=== PATIENT | female | born 1945 | race Caucasian/White ===

== ENCOUNTER → 2016-05-11 | Outpatient (CLI) | payer MEDICARE, OTHER | LOC: GMAH 10:50 | PROVIDERS: ATTEND Family Medicine | DX: E78.2 Mixed hyperlipidemia (principal) ==

== ENCOUNTER → 2016-08-10 | Outpatient (CLI) | payer MEDICARE, OTHER | END | disposition home or self-care (01) | LOC: GMAH 14:10 | PROVIDERS: ATTEND Family Medicine | DX: E78.2 Mixed hyperlipidemia (principal) ==

== ENCOUNTER → 2017-05-17 | Outpatient (CLI) | payer MEDICARE, OTHER | LOC: GMAH 14:31 | PROVIDERS: ATTEND Family Medicine | DX: E78.2 Mixed hyperlipidemia (principal) ==

== ENCOUNTER → 2017-08-02 | Outpatient (CLI) | payer MEDICARE, OTHER ==
--- NOTE | 2017-08-04 14:50 | MAM ---
EXAM DESCRIPTION: 3D Screening BILATERAL : Digital Mammography. CLINICAL HISTORY: 72 years Female SCREENING . No complaints. No family history breast cancer. Postmenopausal. Has taken HRT 5 or more years ago. COMPARISON: 2-D digital screening bilateral study 11/04/2015. Report from prior examination also reviewed. TECHNIQUE: Bilateral CC and MLO projection full-field images, 3-D tomosynthesis digital mammographic technique. Also bilateral synthesized CC/ MLO full-field images. CAD not utilized. FINDINGS: The breast parenchymal density pattern is: Scattered areas of fibroglandular density. No skin thickening or nipple retraction . Bilateral axillary lymph nodes. Bilateral solitary microcalcifications. No focal, stellate mass or density, focal asymmetry , and no suspicious microcalcifications bilaterally. Stable mammograms compared to prior study, taking into account differences in mammographic technique IMPRESSION: BI-RADS CATEGORY: 2 - BENIGN FINDINGS. FOLLOW UP: Routine digital bilateral screening, one year interval from July 2017. Written communication explaining the IMPRESSION and follow-up, will be mailed to the patient and referring health care provider. According to the [employer], yearly mammograms are recommended starting at age 40 and continuing as long as a woman is in good health. Any breast change noted on a breast self-exam should be reported promptly to the patient's healthcare provider. Breast MRI is recommended for women with an approximately 20-25% or greater lifetime risk of breast cancer, including women with a strong family history of breast or ovarian cancer and women who have been treated for Hodgkin's disease. A negative mammographic report should not delay tissue diagnosis in patients with significant clinical history or physical findings. Extremely dense breast tissue limits the sensitivity of digital mammography. Electronically signed by: Neal Lockwood MD 08/04/2017 2:49 PM CDT
== END ==
LOC: MAMMO 10:30
PROVIDERS: ATTEND Family Medicine
DX: Z12.31 Encounter for screening mammogram for malignant neoplasm of breast (principal)

== ENCOUNTER 2017-10-04 09:38 | Emergency (ER) | payer MEDICARE, OTHER ==
--- NOTE | 2017-10-04 09:49 | ED.PDOC ---
History of Present Illness - General Chief Complaint: Trauma Stated Complaint: Fall - several abrasions Time Seen by Provider: 10/04/17 09:48 Source: patient, RN notes reviewed, Vital Signs reviewed, family Exam Limitations: no limitations - History of Present Illness Timing/Duration: 1 hour Severity: mild Improving Factors: immobilization Worsening Factors: movement Associated Symptoms: denies symptoms - painful right wrist, no chest pain, abd pain, no headache Allergies/Adverse Reactions: Allergies NO KNOWN ALLERGY Allergy (Verified 10/04/17 09:47) Home Medications: Ambulatory Orders Amoxicillin 875 mg PO BID #20 tab 10/04/17 Ketorolac Tromethamine [Toradol Tabs] 10 mg PO Q6H PRN #20 tab 10/04/17 Review of Systems - Review of Systems Constitutional: States: no symptoms reported EENTM: Denies: eye pain, blurred vision, double vision, ear pain, ear discharge , nose pain, nose congestion, throat pain, throat swelling, mouth pain, mouth swelling Respiratory: Denies: short of breath Cardiology: Denies: chest pain, edema, palpitations, syncope Gastrointestinal/Abdominal: Denies: abdominal pain, nausea Genitourinary: States: no symptoms reported Musculoskeletal: States: other - pain to right wrist, left knee, lip/ tooth Skin: States: other - laceration, bruise Neurological: Denies: headache, numbness, paresthesia, tremors, weakness Endocrine: States: no symptoms reported Hematologic/Lymphatic: States: no symptoms reported Family Medical History - Family History Mother Living Status: Hx Family Hypertension: Yes Hx Cardiac Disease: Yes Hx Family;Other: Parkinson's Physical Exam - Physical Exam General Appearance: Alert, Well Developed, Well Groomed, Well Hydrated, Well Nourished Eye Exam: bilateral normal Ears, Nose, Throat: hearing grossly normal, normal ENT inspection, normal pharynx, other - 1 cm non gaping laceration to the linner upper lip, small abrasion to the outer lip superior, no pain to the face with biting down, no pain to bones of face, normal eye motion Neck: non-tender, full range of motion, supple Respiratory: chest non-tender, lungs clear, normal breath sounds, no respiratory distress, no accessory muscle use Cardiovascular/Chest: normal peripheral pulses, regular rate, rhythm, no edema, no gallop, no JVD, no murmur Peripheral Pulses: radial,right: 2+, radial,left: 2+ Gastrointestinal/Abdominal: normal bowel sounds, non tender, soft Back Exam: normal inspection, no CVA tenderness, no vertebral tenderness Extremity: other - mild tenderness to the right knee but able to bear weight no laxity of joint, mild contusion to the right hand and wrist, able to move fully , normal strength in all digits/ hand/ elbow/ shoulder, no open tendon or involvement Neurologic: director of land II-XII nml as tested, no motor/sensory deficits, alert, normal mood/affect, oriented x 3 Skin Exam: other - laceration for the top of hand 1 cm Progress - Progress Progress: 10/04/17 10:14, mild subluxation of central superior incisor, discussed need for soft mechanical / liquid diet for one week Procedures - Laceration/Wound Repair Right Dorsal Hand Wound's Depth, Shape: superficial, irregular Wound Explored: clean Betadine Prep?: No - peroxide Volume Anesthetic (cc's): 100 Wound Repaired With: dermabond Sterile Dressing Applied?: No Departure - Departure Clinical Impression: Fall Qualifiers: Encounter type: initial encounter Qualified Code(s): W19.XXXA - Unspecified fall, initial encounter Laceration of lip Qualifiers: Encounter type: initial encounter Qualified Code(s): S01.511A - Laceration without foreign body of lip, initial encounter Laceration of hand Qualifiers: Encounter type: initial encounter Foreign body presence: without foreign body Laterality: right Qualified Code(s): S61.411A - Laceration without foreign body of right hand, initial encounter Contusion of lip Qualifiers: Encounter type: initial encounter Qualified Code(s): S00.531A - Contusion of lip, initial encounter Contusion of knee Qualifiers: Encounter type: initial encounter Laterality: left Qualified Code(s): S80.02XA - Contusion of left knee, initial encounter Contusion of wrist Qualifiers: Encounter type: initial encounter Laterality: right Qualified Code(s): S60.211A - Contusion of right wrist, initial encounter Time of Disposition: 10:06 Disposition: Discharge to Home or Self Care Condition: Excellent Departure Forms: ED Discharge - Pt. Copy, Patient Portal Self Enrollment Instructions: DI for Trauma Diet: full liquid diet Activity: increase activity as tolerated Referrals: Johnny Medina MD [Primary Care Provider] - 1-2 Weeks Prescriptions: Amoxicillin 875 mg PO BID #20 tab Ketorolac Tromethamine [Toradol Tabs] 10 mg PO Q6H PRN #20 tab PRN Reason: Pain Home Medications: Ambulatory Orders Amoxicillin 875 mg PO BID #20 tab 10/04/17 Ketorolac Tromethamine [Toradol Tabs] 10 mg PO Q6H PRN #20 tab 10/04/17 Additional Instructions: swish and spit salt water after each meal and prior to bed. return if acute fever, redness, new painful area, problem, concern
[2017-10-04 09:57] VITALS: TEMP 99.2
[2017-10-04] MEDS ORDERED: KETOROLAC TROMETHAMINE 10 MG TAB PO ONE (09:59)
[2017-10-04] MEDS ORDERED: AMOXICILLIN 500 MG CAP PO ONE (09:59)
[2017-10-04] MEDS ORDERED: NEOMYCIN-BACITRACIN-POLYMYXIN 0.9 GM UD TOP ONE (10:09)
[2017-10-04] MEDS ORDERED: TETANUS,DIPHTHERIA,PERTUSSIS 1 EA SYG IM ONE ×2 (10:14→10:15)
[2017-10-04 10:35] VITALS: BP 146/80; O2SAT 97
== END 2017-10-04 10:40 | disposition home or self-care (01) ==
LOC: ER 09:38
DX: S60.211A Contusion of right wrist, initial encounter (principal); S61.411A Laceration without foreign body of right hand, initial encounter; S01.511A Laceration without foreign body of lip, initial encounter; S00.531A Contusion of lip, initial encounter; S80.02XA Contusion of left knee, initial encounter; S03.2XXA Dislocation of tooth, initial encounter; Z23 Encounter for immunization; W19.XXXA Unspecified fall, initial encounter; Y92.9 Unspecified place or not applicable

== ENCOUNTER → 2018-01-17 | Outpatient (CLI) | payer MEDICARE, OTHER | LOC: GMAH 14:47 | PROVIDERS: ATTEND Family Medicine | DX: M25.579 Pain in unspecified ankle and joints of unspecified foot (principal) ==

== ENCOUNTER → 2018-05-29 | Outpatient (CLI) | payer MEDICARE, OTHER | LOC: GMAH 10:45 | PROVIDERS: ATTEND Family Medicine | DX: E78.2 Mixed hyperlipidemia (principal); I10 Essential (primary) hypertension; R00.2 Palpitations; Z82.41 Family history of sudden cardiac death ==

== ENCOUNTER → 2019-02-12 | Outpatient (CLI) | payer MEDICARE, OTHER ==
--- NOTE | 2019-02-14 11:19 | MAM ---
EXAM DESCRIPTION: 3D Screening BILATERAL : Digital Mammography. CLINICAL HISTORY: 73 years Female SCREENING . No complaints. No personal or family history of breast cancer. Menarche age 13. Childbirth. Postmenopausal 15 years plus HRT 5 or more years ago.. Lifetime risk of developing breast cancer (Tyrer-Cuzick model)(%): 4.8. COMPARISON: Bilateral screening digital breast tomosynthesis 02 August 2017 and 2-D digital screening bilateral mammography 04 November 2015.. TECHNIQUE: Bilateral CC and MLO projection full-field images, digital tomosynthesis mammographic technique. Bilateral digital 2-D full-field MLO images. and CC images. CAD not available for tomosynthesis or 2-D images. FINDINGS: The breast parenchymal density pattern is: Heterogeneously dense breast tissue, which may obscure small masses. No skin thickening or nipple retraction. Bilateral axillary lymph nodes. Bilateral solitary microcalcifications. No new focal, stellate mass or density, focal asymmetry , and no suspicious microcalcifications bilaterally. Stable mammograms compared to prior study. IMPRESSION: Benign exam. BIRAD CATEGORY: 2 BENIGN FINDINGS. RECOMMENDATIONS: FOLLOW UP: Routine digital bilateral mammographic screening, one year interval from February 2019. Written communication explaining the IMPRESSION and follow-up, will be mailed to the patient and referring health care provider. According to the [employer], yearly mammograms are recommended starting at age 40 and continuing as long as a woman is in good health. Any breast change noted on a breast self-exam should be reported promptly to the patient's healthcare provider. Breast MRI is recommended for women with an approximately 20-25% or greater lifetime risk of breast cancer, including women with a strong family history of breast or ovarian cancer and women who have been treated for Hodgkin's disease. A negative mammographic report should not delay tissue diagnosis in patients with significant clinical history or physical findings. Extremely dense breast tissue limits the sensitivity of digital mammography. Electronically signed by: Neal Lockwood MD 02/14/2019 11:17 AM ENGLISH LECTURER
== END ==
LOC: MAMMO 02-05 10:00
PROVIDERS: ATTEND Family Medicine
DX: Z12.31 Encounter for screening mammogram for malignant neoplasm of breast (principal)

== ENCOUNTER 2019-08-29 05:42 | Day surgery (SDC) | payer MEDICARE, OTHER ==
[2019-08-29] MEDS ORDERED: LIDOCAINE 1% 10 ML VIAL INJ ONE (07:00)
[2019-08-29] MEDS ORDERED: PROPOFOL 200 MG/20 ML VIAL IV ONE (07:00)
[2019-08-29 09:50] VITALS: BP 138/70; TEMP 96.4; O2SAT 98
--- NOTE | 2019-08-29 13:31 | OP ---
DATE OF PROCEDURE: 08/29/19 PROCEDURE: Colonoscopy. SURGEON: Ugo Rodriguez MD PROCEDURE: The patient was placed in lateral position. General anesthesia was induced. Digital rectal exam was normal. The colonoscope was inserted and passed all the way to the cecum, which was identified by the ileocecal valve and the appendiceal orifice. Upon withdrawal, no significant polyps were seen in the majority of the colon. No evidence of inflammation, strictures, no significant diverticulosis was noted. In the upper rectum, two small polyps were seen. These were excised with forceps and removed together. They appeared possibly hyperplastic. Again, the remainder of the exam was normal. The patient tolerated the procedure and was taken to Recovery to be discharged. #[id number] cc: Jovon Rodriguez MD MTD
== END 2019-08-29 09:35 | disposition home or self-care (01) ==
LOC: AMB 05:42
PROVIDERS: ATTEND Surgery
DX: D12.8 Benign neoplasm of rectum (principal); I10 Essential (primary) hypertension; Z88.8 Allergy status to other drugs, medicaments and biological substances; Z79.899 Other long term (current) drug therapy; Z86.010 Personal history of colon polyps
CPT/HCPCS: 00811; 45380; 88305; J3490

== ENCOUNTER → 2019-09-19 | Outpatient (CLI) | payer MEDICARE, OTHER | LOC: ECHO 13:00 | PROVIDERS: ATTEND Family Medicine | DX: R60.0 Localized edema (principal); I35.1 Nonrheumatic aortic (valve) insufficiency; I34.0 Nonrheumatic mitral (valve) insufficiency; I50.30 Unspecified diastolic (congestive) heart failure; I51.7 Cardiomegaly ==

== ENCOUNTER → 2020-02-26 | Outpatient (CLI) | payer MEDICARE, OTHER | LOC: GMA MATASK 11:11 | PROVIDERS: ATTEND Family Medicine | DX: E03.9 Hypothyroidism, unspecified (principal) ==